=== PATIENT | male | born 1965 | race African-American/Black ===

== ENCOUNTER 2018-03-05 15:37 | Emergency (ER) | payer OTHER ==
[2018-03-05] MEDS: CEFTRIAXONE 2 GM/50 ML (PMX) 50 ML IVPB (17:02)
[2018-03-05] MEDS: MUPIROCIN 2% 22 GM OINT TOP (17:20)
== END 2018-03-05 18:08 | disposition home or self-care (01) ==
LOC: FTE 15:37
DX: L73.9 Follicular disorder, unspecified (principal); I10 Essential (primary) hypertension; E11.9 Type 2 diabetes mellitus without complications
CPT/HCPCS: 96374; 99284-25

== ENCOUNTER 2018-05-31 12:56 | Emergency (ER) | payer OTHER ==
[2018-05-31] MEDS: IBUPROFEN 600 MG TAB PO (16:11)
== END 2018-05-31 16:57 | disposition home or self-care (01) ==
LOC: FTE 12:56
DX: M25.571 Pain in right ankle and joints of right foot (principal); M25.572 Pain in left ankle and joints of left foot; I10 Essential (primary) hypertension; E11.9 Type 2 diabetes mellitus without complications
CPT/HCPCS: 99283; Z7502

== ENCOUNTER 2018-11-19 18:18 | Observation (INO) | payer OTHER ==
[2018-11-19 19:01] LABS: ADD MAN DIFF? NO
[2018-11-19 19:03] LABS: BASOPHILS % 0.4 % (0.0-2.0); EOSINOPHILS # 0.1 10^3/ul (0.0-0.5); EOSINOPHILS % 2.2 % (0.0-7.0); HEMATOCRIT 41.2 % (42.0-52.0); HEMOGLOBIN 13.2 g/dl (14.0-18.0); LYMPHOCYTES # 1.7 10^3/ul (0.8-2.9); LYMPHOCYTES % 37.1 % (15.0-51.0); MEAN CORPUSCULAR HEMOGLOBIN 24.2 pg (29.0-33.0); MEAN CORPUSCULAR VOLUME 75.6 fl (82.0-101.0); MEAN PLATELET VOLUME 9.8 fl (7.4-10.4); MONOCYTE # 0.5 10^3/ul (0.3-0.9); MONOCYTES % 10.2 % (0.0-11.0); NEUTROPHIL # 2.2 10^3/ul (1.6-7.5); NEUTROPHILS % 49.9 % (39.0-77.0); PLATELET COUNT 211 10^3/UL (140-415); RED BLOOD COUNT 5.45 10^6/ul (4.70-6.10)
[2018-11-19 19:03] LABS: WHITE BLOOD COUNT 4.5 10^3/ul (4.8-10.8)
[2018-11-19] MEDS: ONDANSETRON (ODT) 4 MG TAB ODT (19:34)
[2018-11-19] MEDS: morphine 4 MG/ML VIAL IV (19:34)
[2018-11-19 19:37] LABS: ANION GAP 9 (5-13); BLOOD UREA NITROGEN 21 mg/dl (7-20); CALCIUM 9.3 mg/dl (8.4-10.2); CARBON DIOXIDE 29 mmol/L (21-31); CHLORIDE 97 mmol/L (97-110); CREATININE 0.77 mg/dl (0.61-1.24); Estimated GFR > 60 mL/min (>60); GLUCOSE 93 mg/dl (70-220); POTASSIUM 3.8 mmol/L (3.5-5.1); SODIUM 135 mmol/L (135-144)
[2018-11-19 19:48] LABS: TROPONIN-I < 0.012 ng/ml (0.000-0.120)
[2018-11-19] MEDS ORDERED: ONDANSETRON 4 MG INJ IV ×2 (20:30→23:00)
[2018-11-19] MEDS ORDERED: ACETAMINOPHEN 325 MG TAB PO (20:30)
[2018-11-19] MEDS: ASPIRIN 81 MG TAB PO (20:33)
[2018-11-19] MEDS ORDERED: GLUCOSE GEL 15 GRAM TUBE BUCCAL (23:00)
[2018-11-19] MEDS ORDERED: GLUCAGON 1 MG INJ IM (23:00)
[2018-11-19] MEDS ORDERED: GLUCOSE GEL 15 GRAM TUBE PO ×2 (23:00)
[2018-11-19] MEDS ORDERED: DEXTROSE 50% 50 ML SYRINGE IV ×2 (23:00)
[2018-11-19] MEDS ORDERED: NACL 0.9% 3 ML SYG IV (23:00)
[2018-11-19] MEDS: SOD CHLORIDE 0.9% 1,000 ML IV (23:14)
[2018-11-20] MEDS: ACCU-CHEK XX (02:27)
[2018-11-20] MEDS: HYDROCODONE/APAP (5/325) TAB PO (04:23)
[2018-11-20 04:24] LABS: ADD MAN DIFF? NO
[2018-11-20 04:26] LABS: WHITE BLOOD COUNT 3.6 10^3/ul (4.8-10.8)
[2018-11-20 04:26] LABS: BASOPHILS % 0.3 % (0.0-2.0); EOSINOPHILS # 0.1 10^3/ul (0.0-0.5); EOSINOPHILS % 2.8 % (0.0-7.0); HEMATOCRIT 38.5 % (42.0-52.0); HEMOGLOBIN 12.2 g/dl (14.0-18.0); LYMPHOCYTES # 1.6 10^3/ul (0.8-2.9); LYMPHOCYTES % 45.3 % (15.0-51.0); MEAN CORPUSCULAR HEMOGLOBIN 24.2 pg (29.0-33.0); MEAN CORPUSCULAR HGB CONC 31.7 g/dl (32.0-37.0); MEAN CORPUSCULAR VOLUME 76.2 fl (82.0-101.0); MEAN PLATELET VOLUME 9.6 fl (7.4-10.4); MONOCYTE # 0.4 10^3/ul (0.3-0.9); MONOCYTES % 11.1 % (0.0-11.0); NEUTROPHIL # 1.5 10^3/ul (1.6-7.5); NEUTROPHILS % 40.5 % (39.0-77.0); PLATELET COUNT 192 10^3/UL (140-415); RED BLOOD COUNT 5.05 10^6/ul (4.70-6.10); RED CELL DISTRIBUTION WIDTH 15.1 % (11.5-14.5)
[2018-11-20 04:33] LABS: HEMOGLOBIN A1C 6.3 % (0-5.9)
[2018-11-20 04:44] LABS: ALANINE AMINOTRANSFERASE 32 IU/L (13-69); ALBUMIN 3.8 g/dl (3.3-4.9); ALBUMIN/GLOBULIN RATIO 1.31; ALKALINE PHOSPHATASE 50 IU/L (42-121); ANION GAP 5 (5-13); ASPARTATE AMINO TRANSFERASE 25 IU/L (15-46); BILIRUBIN,INDIRECT 0.2 mg/dl (0-1.1); BILIRUBIN,TOTAL 0.2 mg/dl (0.2-1.3); BLOOD UREA NITROGEN 19 mg/dl (7-20); CARBON DIOXIDE 31 mmol/L (21-31); CHLORIDE 101 mmol/L (97-110); CHOL/HDL RATIO 5.7 RATIO; CHOLESTEROL 126 mg/dl (100-200); CREATINE KINASE 425 IU/L (23-200); CREATININE 0.79 mg/dl (0.61-1.24); Estimated GFR > 60 mL/min (>60); GLUCOSE 97 mg/dl (70-220); HDL CHOLESTEROL 22 mg/dl (28-71); LDL CHOLESTEROL,CALCULATED 89 mg/dl; MAGNESIUM 2.1 mg/dl (1.7-2.5); POTASSIUM 3.7 mmol/L (3.5-5.1); SODIUM 137 mmol/L (135-144); TOTAL PROTEIN 6.7 g/dl (6.1-8.1); TRIGLYCERIDES 74 mg/dl (0-149)
[2018-11-20 04:56] LABS: CK INDEX 0.7; TROPONIN-I < 0.012 ng/ml (0.000-0.120)
[2018-11-20 05:05] LABS: CK-MB 2.95 ng/ml (0.0-2.4)
[2018-11-20 05:37] LABS: THYROID STIMULATING HORMONE 0.698 MIU/L (0.465-4.680)
[2018-11-20 07:36] LABS: CK INDEX 0.7
[2018-11-20 08:26] LABS: CK-MB 3.05 ng/ml (0.0-2.4); CREATINE KINASE 441 IU/L (23-200); TROPONIN-I < 0.012 ng/ml (0.000-0.120)
[2018-11-20] MEDS ORDERED: LOSARTAN 50 MG TAB PO ×2 (09:00)
[2018-11-20] MEDS ORDERED: AMLODIPINE 5 MG TAB PO (09:00)
[2018-11-20] MEDS ORDERED: LOSARTAN 25 MG TAB PO (10:00)
[2018-11-20] MEDS: INSULIN ASPART [NOVOLOG] 3 ML PEN SC ×4 (14:55→21:00)
[2018-11-20] MEDS: ASPIRIN 81 MG TAB PO ×2 (16:11)
[2018-11-20] MEDS: SOD CHLORIDE 0.9% 1,000 ML IV (16:11)
[2018-11-20] MEDS: ATORVASTATIN 80 MG TAB PO (21:03)
[2018-11-20] MEDS: ACETAMINOPHEN 325 MG TAB PO (23:32)
[2018-11-21] MEDS: ACCU-CHEK XX (02:00)
[2018-11-21] MEDS: INSULIN ASPART [NOVOLOG] 3 ML PEN SC ×3 (07:55→17:24)
[2018-11-21] MEDS: LOSARTAN 50 MG TAB PO (08:52)
[2018-11-21] MEDS: ASPIRIN 81 MG TAB PO ×2 (08:52→08:53)
[2018-11-21] MEDS: HYDROCODONE/APAP (5/325) TAB PO (08:58)
[2018-11-21] MEDS: SOD CHLORIDE 0.9% 1,000 ML IV (14:36)
== END 2018-11-21 18:15 | disposition home or self-care (01) ==
LOC: TEL 20:20 → E/R 18:18
DX: I10 Essential (primary) hypertension (principal); R42 Dizziness and giddiness; R94.31 Abnormal electrocardiogram [ECG] [EKG]; E11.9 Type 2 diabetes mellitus without complications; R53.1 Weakness; E78.5 Hyperlipidemia, unspecified; E66.9 Obesity, unspecified; Z86.73 Personal history of transient ischemic attack (TIA), and cerebral infarction without residual deficits
CPT/HCPCS: 36415; 70450; 70551; 71045; 80048; 80053; 80061; 82550; 82553; 82962; 83036; 83735; 84443; 84484; 85025; 93005; 93306; 93880; 96374; 99285-25; G0378

== ENCOUNTER 2019-02-14 17:29 | Emergency (ER) | payer SELFPAY, OTHER | END 2019-02-14 20:07 | disposition left against medical advice (07) | LOC: FTE 17:29 | DX: Z53.21 Procedure and treatment not carried out due to patient leaving prior to being seen by health care provider (principal) ==